=== PATIENT | female | born 1990 | race Caucasian/White ===

== ENCOUNTER 2017-01-09 16:48 | Inpatient (IN) | payer OTHER ==
[~2017-01-09] VITALS: Ht 167.6 cm; Wt 121.1 kg
[2017-01-09 17:10] LABS: BASO # 0.1 x10^3/uL (0.0-0.2); BASO % 0 % (0-3); EOS % 0 % (0-3); HEMATOCRIT 40.9 % (36.0-47.0); HEMOGLOBIN 13.6 g/dL (12.0-15.5); LYMPH # 1.9 x10^3/uL (1.0-4.8); LYMPH % 9 % (24-48); MEAN CORPUSCULAR HEMOGLOBIN 29 pg (25-35); MEAN CORPUSCULAR HGB CONC 33 g/dL (31-37); MEAN CORPUSCULAR VOLUME 88 fL (79-100); MONO % 3 % (0-9); NEUT % 87 % (31-73); PLATELET COUNT 366 x10^3/uL (140-400); RED BLOOD COUNT 4.65 x10^6/uL (3.50-5.40); RED CELL DISTRIBUTION WIDTH 13.3 % (11.5-14.5)
[2017-01-09 17:17] LABS: CALCIUM 9.5 mg/dL (8.5-10.1); CREATININE 0.9 mg/dL (0.6-1.0); GFR 74.6; POTASSIUM 3.8 mmol/L (3.5-5.1)
--- NOTE | 2017-01-09 17:17 | PHYS DOC ---
Past Medical History Past Medical History: Depression Past Surgical History: Cholecystectomy Adult General Chief Complaint Chief Complaint: ABDOMINAL PAIN HPI HPI Patient is a 26 year old female who presents with abdominal pain. Patient reports pain started as a sharp, generalized/periumbilical pain ~1330 this afternoon. The pain has now localized to her RLQ. Pain worse with certain movements. It is accompanied by N/V. No clear inciting or mitigating factors. No prior similar episodes. She has not taken anything for symptoms. She denies urinary symptoms, vaginal bleeding or discharge. Review of Systems Review of Systems Constitutional: Denies fever or chills Eyes: Denies change in visual acuity or eye pain HENT: Denies nasal congestion or sore throat Respiratory: Denies cough or shortness of breath Cardiovascular: Denies chest pain GI: Abdominal pain, nausea, vomiting. Denies bloody stools or diarrhea : Denies dysuria, hematuria, vaginal bleeding or discharge Musculoskeletal: Denies back pain or joint pain Integument: Denies rash or skin lesions Neurologic: Denies headache, focal weakness or sensory changes Current Medications Current Medications Current Medications Medications (Trade) Dose Ordered Sig/Elvis Start Time Stop Time Status Last Admin Dose Admin Acetaminophen (Tylenol) 650 mg PRN Q4HRS PRN 01/09/17 18:30 01/10/17 18:29 Ertapenem (Invanz 1gm Ivpb For Omni) 50 ml @ 100 mls/hr 1X ONCE 01/09/17 18:15 01/09/17 18:44 DC 01/09/17 18:21 100 MLS/HR Iohexol 75 ml 75 ml 1X ONCE 01/09/17 17:30 01/09/17 17:31 DC 01/09/17 17:32 75 ML Morphine Sulfate 4 mg 4 mg PRN Q2HR PRN 01/09/17 18:30 01/10/17 18:29 Ondansetron HCl (Zofran) 4 mg PRN Q8HRS PRN 01/09/17 18:30 01/10/17 18:29 Sodium Chloride (Iv Sodium Chloride 0.9% 1000ml Bag) 1,000 ml @ 125 mls/hr Q8H 01/09/17 19:00 01/10/17 18:59 Allergies Allergies Allergies Coded Allergies Type Severity Reaction Last Updated Verified No Known Drug Allergies 2/23/17 No Physical Exam Physical Exam Constitutional: Well developed, well nourished, no acute distress, non-toxic appearance HENT: Normocephalic, atraumatic, bilateral external ears normal Eyes: EOMI, conjunctiva normal, no discharge Neck: Normal range of motion, no stridor Cardiovascular: Tachycardic, regular rhythm, no murmur Lungs & Thorax: Bilateral breath sounds clear to auscultation Abdomen: Bowel sounds normal, soft, non-distended, RLQ TTP without guarding or rebound Skin: Warm, dry, no erythema, no rash Extremities: No obvious deformity, no edema Neurologic: Alert and oriented X 3, no gross deficits noted Psychologic: Affect normal, judgement normal, mood normal Current Patient Data Vital Signs Vital Signs Date Time Temp Pulse Resp B/P Pulse Ox O2 Delivery O2 Flow Rate FiO2 01/09/17 17:52 91 15 118/58 98 Room Air 01/09/17 16:55 98.5 98.5 Lab Values Laboratory Tests Test 01/09/17 17:00 01/09/17 17:05 01/09/17 17:17 White Blood Count 21.0x10^3/uL (4.0-11.0) H Red Blood Count 4.65x10^6/uL (3.50-5.40) Hemoglobin 13.6g/dL (12.0-15.5) Hematocrit 40.9% (36.0-47.0) Mean Corpuscular Volume 88fL (79-100) Mean Corpuscular Hemoglobin 29pg (25-35) Mean Corpuscular Hemoglobin Concent 33g/dL (31-37) Red Cell Distribution Width 13.3% (11.5-14.5) Platelet Count 366x10^3/uL (140-400) Neutrophils (%) (Auto) 87% (31-73) H Lymphocytes (%) (Auto) 9% (24-48) L Monocytes (%) (Auto) 3% (0-9) Eosinophils (%) (Auto) 0% (0-3) Basophils (%) (Auto) 0% (0-3) Neutrophils # (Auto) 18.3x10^3uL (1.8-7.7) H Lymphocytes # (Auto) 1.9x10^3/uL (1.0-4.8) Monocytes # (Auto) 0.6x10^3/uL (0.0-1.1) Eosinophils # (Auto) 0.1x10^3/uL (0.0-0.7) Basophils # (Auto) 0.1x10^3/uL (0.0-0.2) Segmented Neutrophils % 89% (35-66) H Lymphocytes % 7% (24-48) L Monocytes % 3% (0-10) Eosinophils % 1% (0-5) Platelet Estimate Adequate (ADEQUATE) Anisocytosis Slight Sodium Level 143mmol/L (136-145) Potassium Level 3.8mmol/L (3.5-5.1) Chloride Level 106mmol/L (98-107) Carbon Dioxide Level 26mmol/L (21-32) Anion Gap 11 (6-14) Blood Urea Nitrogen 9mg/dL (7-20) Creatinine 0.9mg/dL (0.6-1.0) Estimated GFR (Cockcroft-Gault) 74.6 BUN/Creatinine Ratio 10 (6-20) Glucose Level 112mg/dL (70-99) H Calcium Level 9.5mg/dL (8.5-10.1) Total Bilirubin 0.6mg/dL (0.2-1.0) Aspartate Amino Transferase (AST) 23U/L (15-37) Alanine Aminotransferase (ALT) 25U/L (14-59) Alkaline Phosphatase 86U/L (46-116) Total Protein 8.1g/dL (6.4-8.2) Albumin 3.9g/dL (3.4-5.0) Albumin/Globulin Ratio 0.9 (1.0-1.7) L Lipase 100U/L (73-393) Urine Collection Type Unknown Urine Color Margaret Urine Clarity Cloudy Urine pH 5.5 Urine Specific [place] >=1.030 Urine Protein 30mg/dL (NEG-TRACE) Urine Glucose (UA) Negativemg/dL (NEG) Urine Ketones (Stick) Tracemg/dL (NEG) Urine Blood Negative (NEG) Urine Nitrite Negative (NEG) Urine Bilirubin Small (NEG) Urine Urobilinogen Dipstick 0.2mg/dL (0.2 mg/dL) Urine Leukocyte Esterase Small (NEG) Urine RBC 0/HPF (0-2) Urine WBC 5-10/HPF (0-4) Urine Squamous Epithelial Cells Many/LPF Urine Calcium Phosphate Crystals /HPF Urine Bacteria Moderate/HPF (0-FEW) Urine Mucus Marked/LPF POC Urine HCG, Qualitative Hcg negative (Negative) Laboratory Tests 01/09/17 17:00 Laboratory Tests 01/09/17 17:00 EKG EKG [] Radiology/Procedures Radiology/Procedures CT A/P: IMPRESSION The appendix appears mildly abnormal. This is consistent with early acute appendicitis. Course & Med Decision Making Course & Med Decision Making Pertinent Labs and Imaging studies reviewed. (See chart for details) Patient is 26 year old female who presents with RLQ pain. Story suspicious for appendicitis. Will check labs, UA, urine preg, CT A/P to evaluate. IVF bolus, pain meds, nausea meds ordered for relief of symptoms. Labs notable for leukocytosis. Imaging results as above. Dose of invanz ordered. Discussed results with patient. Discussed with Dr. Lindsay, who will consult on patient. Discussed with Dr. Serrano, will admit under his care for further evaluation and treatment. Dragon Disclaimer Dragon Disclaimer This electronic medical record was generated, in whole or in part, using a voice recognition dictation system. Departure Departure Impression: Primary Impression: Acute appendicitis Disposition: ADMITTED INPATIENT Admitting Physician: Mitch Serrano Condition: STABLE SINGH OSBORN MD Jan 09, 2017 17:17
[2017-01-09 17:24] LABS: ALBUMIN 3.9 g/dL (3.4-5.0); ALBUMIN/GLOBULIN RATIO 0.9 (1.0-1.7); TOTAL BILIRUBIN 0.6 mg/dL (0.2-1.0); TOTAL PROTEIN 8.1 g/dL (6.4-8.2)
[2017-01-09] MEDS ORDERED: MORPHINE SULFATE 4 MG/ML DISP.SYRIN. IV ONE (17:30)
[2017-01-09] MEDS ORDERED: IV NORMAL SALINE 1000ML BAG 1,000 ML IV SCH ×2 (17:30→19:00)
[2017-01-09] MEDS ORDERED: IOHEXOL 300 MG/ML 75 ML VIAL IV ONE (17:30)
[2017-01-09] MEDS ORDERED: ONDANSETRON PF 4 MG/2 ML VIAL. IV ONE (17:30)
[2017-01-09 17:38] LABS: % EOS 1 % (0-5); ANISOCYTOSIS SLIGHT; PLT ESTIMATE ADEQUATE (ADEQUATE)
[2017-01-09 17:53] LABS: BILIRUBIN,URINE SMALL (NEG); GLUCOSE,URINE NEGATIVE (NEG); NITRITE,URINE NEGATIVE (NEG); PH,URINE 5.5; PROTEIN,URINE 30 mg/dL (NEG-TRACE); UROBILINOGEN,URINE 0.2 mg/dL (0.2 mg/dL)
[2017-01-09 17:59] LABS: BACTERIA,URINE MODERATE /HPF (0-FEW); RBC,URINE 0 /HPF (0-2); SQUAMOUS EPITHELIAL CELL,UR MANY /LPF
--- NOTE | 2017-01-09 18:07 | RAD ---
PROCEDURE CT abdomen pelvis with contrast HISTORY Sharp periumbilical pain TECHNIQUE After IV infusion of95 cc of Optiray-320, helical CT scanning of the abdomen and pelvis was performed.GI contrast was not administered. FINDINGS The appendix is only mildly dilated to 10 millimeters however there is minimal surrounding inflammation. The liveer is homogeous in appearance and normal in size. The spleen is unremarkable and normal in size. The pancreas is homogeneous in appearance and no focal enlargement is seen. The gallbladder has been removed. No focal aneurysmal dilatation of the abdominal aorta is seen. No enlarged abdominal or pelvic lymphadenopathy is seen. No soft tissue mass is seen. No obstructive bowel pattern or bowel wall thickening or inflammatory change is seen. No free intraperitoneal fluid or abscess or free intraperitoneal air is seen. The lung bases are clear. Both kidneys are functioning and no hydronephrosis or renal mass or perinephric fluid collection is seen. The urinary bladder is collapsed and not well evaluated. No adrenal masses are seen. No osteolytic process is seen. IMPRESSION The appendix appears mildly abnormal. This is consistent with early acute appendicitis. Electronically signed by: Sherif Greenberg MD (Jan 09, 2017 18:05:38)
[2017-01-09] MEDS ORDERED: ERTAPENEM 1GM IVPB FOR OMNI 50 ML IV ONE (18:15)
[2017-01-09] MEDS ORDERED: MORPHINE SULFATE 4 MG/ML DISP.SYRIN. IV PRN (18:30)
[2017-01-09] MEDS ORDERED: ONDANSETRON PF 4 MG/2 ML VIAL. IV PRN ×3 (18:30→21:15)
[2017-01-09] MEDS ORDERED: ACETAMINOPHEN 325 MG TABLET. PO PRN (18:30)
[2017-01-09] MEDS ORDERED: DESFLURANE 61 TO 120 MINUTES IH ONE (19:16)
[2017-01-09] MEDS ORDERED: MIDAZOLAM HCL 2 MG/2 ML VIAL. ONE (19:19)
[2017-01-09] MEDS ORDERED: FENTANYL PF 100 MCG/2 ML VIAL. ONE (19:19)
[2017-01-09] MEDS ORDERED: NEOSTIGMINE METHYLSULFATE 5 MG/5 ML SYRINGE. ONE (19:20)
[2017-01-09] MEDS ORDERED: LIDOCAINE 2% 100 MG/5 ML DISP.SYRIN. ONE (19:20)
[2017-01-09] MEDS ORDERED: DEXAMETHASONE SOD PHOS 20 MG/5 ML VIAL. ONE (19:20)
[2017-01-09] MEDS ORDERED: ROCURONIUM 50 MG/5 ML VIAL. ONE (19:20)
[2017-01-09] MEDS ORDERED: KETOROLAC 30 MG/ML SYRINGE FOR OR. INJ ONE (19:20)
[2017-01-09] MEDS ORDERED: ONDANSETRON PF 4 MG/2 ML VIAL. ONE (19:20)
[2017-01-09] MEDS ORDERED: PROPOFOL 20 ML IV ONE (19:20)
[2017-01-09] MEDS ORDERED: SUCCINYLCHOLINE 200 MG/10 ML VIAL. ONE (19:20)
[2017-01-09] MEDS ORDERED: GLYCOPYRROLATE 1 MG/5 ML VIAL. ONE (19:20)
[2017-01-09] MEDS ORDERED: BUPIVACAINE-EPI 0.25%-1:200000 50 ML VIAL. ONE (19:37)
--- NOTE | 2017-01-09 20:27 | PDOC2 ---
CONSULT Date of Consult Date of Consult DATE: 01/09/17 TIME: 20:23 Reason for Consult Reason for Consult: Abdominal pain Referring Physician Referring Physician: Zach Identification/Chief Complaint Chief Complaint Abdominal pain Source Source: Patient History of Present Illness Reason for Visit: 26 yo female who developed kiera umbilical abdominal pain today about 8 hours ago then pain moved to [facility] with Nausea and vomiting. Denies fever or chills. Past Medical History Infectious disease: Herpes simplex2 Past Surgical History Past Surgical History: Cholecystectomy Family History Family History: No Significant Social History No ALCOHOL: none Drugs: None Lives: with Family Current Problem List Problem List Problems Medical Problems: (1) Acute appendicitis Status: Acute Current Medications Current Medications Current Medications Sodium Chloride (Iv Sodium Chloride 0.9% 1000ml Bag) 1,000 ml @ 1,000 mls/hr Q1H IV Last administered on 01/09/17 17:14; Start 01/09/17 at 17:30; Stop at 18:29; Status DC Ondansetron HCl (Zofran) 4 mg 1X ONCE IV Last administered on 01/09/17 17:15 ; Start 01/09/17 at 17:30; Stop 01/09/17 at 17:31; Status DC Morphine Sulfate 4 mg 1X ONCE IV Last administered on 01/09/17 17:16; Start 01/09/17 at 17:30; Stop 01/09/17 at 17:31; Status DC Iohexol 75 ml 75 ml 1X ONCE IV Last administered on 01/09/17 17:32; Start at 17:30; Stop 01/09/17 at 17:31; Status DC Ertapenem (Invanz 1gm Ivpb For Omni) 50 ml @ 100 mls/hr 1X ONCE IV Last administered on 01/09/17 18:21; Start 01/09/17 at 18:15; Stop 01/09/17 at 18:44 ; Status DC Ondansetron HCl (Zofran) 4 mg PRN Q8HRS PRN IV NAUSEA/VOMITING Last administered on 01/09/17 19:31; Start 01/09/17 at 18:30; Stop 01/10/17 at 18:29 Morphine Sulfate 4 mg 4 mg PRN Q2HR PRN IV PAIN; Start 01/09/17 at 18:30; Stop 01/10/17 at 18:29 Sodium Chloride (Iv Sodium Chloride 0.9% 1000ml Bag) 1,000 ml @ 125 mls/hr Q8H IV Last administered on 01/09/17t 19:31; Start 01/09/17 at 19:00; Stop at 18:59 Acetaminophen (Tylenol) 650 mg PRN Q4HRS PRN PO FEVER; Start 01/09/17 at 18:30 ; Stop 01/10/17 at 18:29 Desflurane (Suprane) 60 ml STK-MED ONCE IH ; Start 01/09/17 at 19:16; Stop 01/09 at 19:17; Status DC Midazolam HCl (Versed) 2 mg STK-MED ONCE .ROUTE ; Start 01/09/17 at 19:19; Stop 01/09/17 at 19:20; Status DC Fentanyl Citrate (Fentanyl 2ml Vial) 100 mcg STK-MED ONCE .ROUTE ; Start at 19:19; Stop 01/09/17 at 19:20; Status DC Succinylcholine Chloride (Anectine) 200 mg STK-MED ONCE .ROUTE ; Start 01/09/17 at 19:20; Stop 01/09/17 at 19:21; Status DC Glycopyrrolate (Robinul) 1 mg STK-MED ONCE .ROUTE ; Start 01/09/17 at 19:20; Stop 01/09/17 at 19:21; Status DC Neostigmine Methylsulfate 5 mg STK-MED ONCE .ROUTE ; Start 01/09/17 at 19:20; Stop 01/09/17 at 19:21; Status DC Rocuronium Arco 50 mg 50 mg STK-MED ONCE .ROUTE ; Start 01/09/17 at 19:20; Stop 01/09/17 at 19:21; Status DC Propofol (Diprivan) 20 ml @ As Directed STK-MED ONCE IV ; Start 01/09/17 at 19: 20; Stop 01/09/17 at 19:21; Status DC Dexamethasone Sodium Phosphate (Decadron) 20 mg STK-MED ONCE .ROUTE ; Start at 19:20; Stop 01/09/17 at 19:21; Status DC Ondansetron HCl (Zofran) 4 mg STK-MED ONCE .ROUTE ; Start 01/09/17 at 19:20; Stop 01/09/17 at 19:21; Status DC Ketorolac Tromethamine (Toradol For Or Only) 30 mg STK-MED ONCE INJ ; Start at 19:20; Stop 01/09/17 at 19:21; Status DC Lidocaine HCl 100 mg STK-MED ONCE .ROUTE ; Start 01/09/17 at 19:20; Stop at 19:21; Status DC Bupivacaine HCl/ Epinephrine Bitart (Marcaine-Epi 0.25%-1:[id number]) 50 ml STK-MED ONCE .ROUTE ; Start 01/09/17 at 19:37; Stop 01/09/17 at 19:38; Status DC Allergies Allergies: Coded Allergies: No Known Drug Allergies (Unverified , 01/09/17) ROS Gastrointestinal: Yes Abdominal Pain, Yes Nausea, Yes Vomiting Physical Exam General: Alert, Oriented X3, Cooperative, mild distress HEENT: Atraumatic, PERRLA, EOMI Lungs: Clear to auscultation, Normal air movement Heart: Regular rate, No murmurs Abdomen: Normal bowel sounds, Soft, Other (TTP RLQ) Extremities: No edema Skin: No significant lesion Neuro: Normal speech Psych/Mental Status: Mental status NL Vitals VITALS Vital Signs Date Time Temp Pulse Resp B/P Pulse Ox O2 Delivery O2 Flow Rate FiO2 01/09/17 19:30 113 21 173/79 95 Room Air 01/09/17 16:55 98.5 98.5 Labs Labs Laboratory Tests Test 01/09/17 17:00 01/09/17 17:05 01/09/17 17:17 White Blood Count 21.0x10^3/uL (4.0-11.0) Red Blood Count 4.65x10^6/uL (3.50-5.40) Hemoglobin 13.6g/dL (12.0-15.5) Hematocrit 40.9% (36.0-47.0) Mean Corpuscular Volume 88fL (79-100) Mean Corpuscular Hemoglobin 29pg (25-35) Mean Corpuscular Hemoglobin Concent 33g/dL (31-37) Red Cell Distribution Width 13.3% (11.5-14.5) Platelet Count 366x10^3/uL (140-400) Neutrophils (%) (Auto) 87% (31-73) Lymphocytes (%) (Auto) 9% (24-48) Monocytes (%) (Auto) 3% (0-9) Eosinophils (%) (Auto) 0% (0-3) Basophils (%) (Auto) 0% (0-3) Neutrophils # (Auto) 18.3x10^3uL (1.8-7.7) Lymphocytes # (Auto) 1.9x10^3/uL (1.0-4.8) Monocytes # (Auto) 0.6x10^3/uL (0.0-1.1) Eosinophils # (Auto) 0.1x10^3/uL (0.0-0.7) Basophils # (Auto) 0.1x10^3/uL (0.0-0.2) Segmented Neutrophils % 89% (35-66) Lymphocytes % 7% (24-48) Monocytes % 3% (0-10) Eosinophils % 1% (0-5) Platelet Estimate Adequate (ADEQUATE) Anisocytosis Slight Sodium Level 143mmol/L (136-145) Potassium Level 3.8mmol/L (3.5-5.1) Chloride Level 106mmol/L (98-107) Carbon Dioxide Level 26mmol/L (21-32) Anion Gap 11 (6-14) Blood Urea Nitrogen 9mg/dL (7-20) Creatinine 0.9mg/dL (0.6-1.0) Estimated GFR (Cockcroft-Gault) 74.6 BUN/Creatinine Ratio 10 (6-20) Glucose Level 112mg/dL (70-99) Calcium Level 9.5mg/dL (8.5-10.1) Total Bilirubin 0.6mg/dL (0.2-1.0) Aspartate Amino Transf (AST/SGOT) 23U/L (15-37) Alanine Aminotransferase (ALT/SGPT) 25U/L (14-59) Alkaline Phosphatase 86U/L (46-116) Total Protein 8.1g/dL (6.4-8.2) Albumin 3.9g/dL (3.4-5.0) Albumin/Globulin Ratio 0.9 (1.0-1.7) Lipase 100U/L (73-393) Urine Collection Type Unknown Urine Color Margaret Urine Clarity Cloudy Urine pH 5.5 Urine Specific [place] >=1.030 Urine Protein 30mg/dL (NEG-TRACE) Urine Glucose (UA) Negativemg/dL (NEG) Urine Ketones (Stick) Tracemg/dL (NEG) Urine Blood Negative (NEG) Urine Nitrite Negative (NEG) Urine Bilirubin Small (NEG) Urine Urobilinogen Dipstick 0.2mg/dL (0.2 mg/dL) Urine Leukocyte Esterase Small (NEG) Urine RBC 0/HPF (0-2) Urine WBC 5-10/HPF (0-4) Urine Squamous Epithelial Cells Many/LPF Urine Calcium Phosphate Crystals /HPF Urine Bacteria Moderate/HPF (0-FEW) Urine Mucus Marked/LPF Bedside Urine HCG, Qualitative Hcg negative (Negative) Laboratory Tests Test 01/09/17 17:00 01/09/17 17:05 01/09/17 17:17 White Blood Count 21.0x10^3/uL (4.0-11.0) Red Blood Count 4.65x10^6/uL (3.50-5.40) Hemoglobin 13.6g/dL (12.0-15.5) Hematocrit 40.9% (36.0-47.0) Mean Corpuscular Volume 88fL (79-100) Mean Corpuscular Hemoglobin 29pg (25-35) Mean Corpuscular Hemoglobin Concent 33g/dL (31-37) Red Cell Distribution Width 13.3% (11.5-14.5) Platelet Count 366x10^3/uL (140-400) Neutrophils (%) (Auto) 87% (31-73) Lymphocytes (%) (Auto) 9% (24-48) Monocytes (%) (Auto) 3% (0-9) Eosinophils (%) (Auto) 0% (0-3) Basophils (%) (Auto) 0% (0-3) Neutrophils # (Auto) 18.3x10^3uL (1.8-7.7) Lymphocytes # (Auto) 1.9x10^3/uL (1.0-4.8) Monocytes # (Auto) 0.6x10^3/uL (0.0-1.1) Eosinophils # (Auto) 0.1x10^3/uL (0.0-0.7) Basophils # (Auto) 0.1x10^3/uL (0.0-0.2) Segmented Neutrophils % 89% (35-66) Lymphocytes % 7% (24-48) Monocytes % 3% (0-10) Eosinophils % 1% (0-5) Platelet Estimate Adequate (ADEQUATE) Anisocytosis Slight Sodium Level 143mmol/L (136-145) Potassium Level 3.8mmol/L (3.5-5.1) Chloride Level 106mmol/L (98-107) Carbon Dioxide Level 26mmol/L (21-32) Anion Gap 11 (6-14) Blood Urea Nitrogen 9mg/dL (7-20) Creatinine 0.9mg/dL (0.6-1.0) Estimated GFR (Cockcroft-Gault) 74.6 BUN/Creatinine Ratio 10 (6-20) Glucose Level 112mg/dL (70-99) Calcium Level 9.5mg/dL (8.5-10.1) Total Bilirubin 0.6mg/dL (0.2-1.0) Aspartate Amino Transf (AST/SGOT) 23U/L (15-37) Alanine Aminotransferase (ALT/SGPT) 25U/L (14-59) Alkaline Phosphatase 86U/L (46-116) Total Protein 8.1g/dL (6.4-8.2) Albumin 3.9g/dL (3.4-5.0) Albumin/Globulin Ratio 0.9 (1.0-1.7) Lipase 100U/L (73-393) Urine Collection Type Unknown Urine Color Margaret Urine Clarity Cloudy Urine pH 5.5 Urine Specific [place] >=1.030 Urine Protein 30mg/dL (NEG-TRACE) Urine Glucose (UA) Negativemg/dL (NEG) Urine Ketones (Stick) Tracemg/dL (NEG) Urine Blood Negative (NEG) Urine Nitrite Negative (NEG) Urine Bilirubin Small (NEG) Urine Urobilinogen Dipstick 0.2mg/dL (0.2 mg/dL) Urine Leukocyte Esterase Small (NEG) Urine RBC 0/HPF (0-2) Urine WBC 5-10/HPF (0-4) Urine Squamous Epithelial Cells Many/LPF Urine Calcium Phosphate Crystals /HPF Urine Bacteria Moderate/HPF (0-FEW) Urine Mucus Marked/LPF Bedside Urine HCG, Qualitative Hcg negative (Negative) Images Images CT of the abd showing enlarged appendix early appendicitis no abscess Assessment/Plan Assessment/Plan Acute appendicitis Plan L/S Appendectomy SHYANNE BATES MD Jan 09, 2017 20:26
[2017-01-09] MEDS ORDERED: FAMOTIDINE 20 MG/2 ML VIAL ONE (20:29)
[2017-01-09] MEDS ORDERED: [UNRECOGNIZED DRUG - OTHER] IV ONE (21:00)
[2017-01-09] MEDS ORDERED: IV RINGERS,LACTATED 1000ML 1,000 ML IV SCH (21:01)
--- NOTE | 2017-01-09 21:12 | PDOC ---
BRIEF OPERATIVE NOTE Date: Jan 09, 2017 Pre-Op Diagnosis Acute appendicitis Post-Op Diagnosis Same Procedure Performed L/S Appendectomy Surgeon Neftali Anesthesia Type: General Blood Loss 10ml Specimens Obtained Appendix Findings as above Complications None SHYANNE BATES MD Jan 09, 2017 21:12
[2017-01-09] MEDS ORDERED: 0.9 % SODIUM CHLORIDE 10 ML DISP.SYRIN. IV PRN (21:15)
[2017-01-09] MEDS ORDERED: MORPHINE SULFATE 2 MG/ML DISP.SYRIN. IV PRN ×2 (21:15)
[2017-01-09] MEDS ORDERED: HYDROMORPHONE 2 MG/ML VIAL. IV PRN (21:15)
[2017-01-09] MEDS ORDERED: PROCHLORPERAZINE 10 MG/2 ML VIAL. IV PRN (21:15)
[2017-01-09] MEDS ORDERED: LIDOCAINE 1% 1 ML SYRINGE. ID PRN (21:15)
[2017-01-09] MEDS ORDERED: OXYCODONE/APAP 5/325 TABLET. PO PRN ×2 (21:15)
[2017-01-09] MEDS ORDERED: FENTANYL PF 100 MCG/2 ML VIAL. IV PRN ×2 (21:15)
[2017-01-09 22:05] VITALS: BP 119/62
[2017-01-09 23:00] VITALS: BP 122/75
--- NOTE | 2017-01-09 23:49 | OP ---
DATE OF SURGERY: 01/09/2017 PREOPERATIVE DIAGNOSIS: Acute appendicitis. POSTOPERATIVE DIAGNOSIS: Acute appendicitis. PROCEDURE: Laparoscopic appendectomy. SURGEON: Ermias Bates M.D. INDICATIONS: The patient is a 26-year-old female who has had about a 10-hour history of right lower quadrant abdominal pain, elevated white count and a CT scan showing signs consistent with acute appendicitis. No abscess. Procedure of laparoscopic appendectomy was explained to the patient in detail. Risks, benefits were also discussed including bleeding, infection, injury to intra-abdominal contents, possibly sustaining further open operations. Alternatives of this procedure were also discussed with the patient who seemed to understand and gave verbal and written consent to have the procedure performed. DESCRIPTION OF PROCEDURE: The patient was taken to the operating room and placed in the supine position, general anesthesia was initiated. Once the patient was asleep and intubated, her abdomen was prepped and draped in usual sterile fashion using ChloraPrep. An area just below the umbilicus was injected 0.25% Marcaine with epinephrine. Incision was made with an 11 blade scalpel and a Veress needle was placed within the abdomen. Pneumoperitoneum was achieved. Once this was complete, an 11 mm port was placed and a 5 mm camera was placed within the abdomen. Abdomen was inspected. No other abnormalities were noted. At this point, two 5 mm ports were then placed, one low in the midline pelvis and one in the right upper quadrant. At this point, camera was moved to the pelvic port in the right lower quadrant. The cecum was visualized and the appendix was mildly retrocecal. The tip of the appendix was quite inflamed and stuck to the lateral wall. This was easily dissected from the lateral blunt dissection. A window was propagated at the mesoappendix at the base of the appendix. An Endo-UMM stapler was then used to staple and transect the base of the appendix. A second load was used to staple and transect the mesoappendix. Appendix was placed in EndoCatch bag and removed from the umbilicus. The right lower quadrant was irrigated and suctioned dry. Hemostasis seemed to be appropriate and the pneumoperitoneum was reduced. All ports were removed. The fascial defect at the umbilicus was closed with [id number] Vicryl suture and the skin was reapproximated at all port sites with 4-0 subcuticular Monocryl. Danette Steri-Strips and Band-Aids were applied as dressings. The patient was awakened, extubated in the operating room, taken to recovery in stable condition. All sponge, instrument counts listed as correct. Estimated blood loss 10 mL. ERMIAS BATES MD DR: HEATHER/pierre JOB#: [id number] / [id number]
--- NOTE | 2017-01-10 00:01 | HP ---
ADMIT DATE: 01/09/2017 CHIEF COMPLAINT: Abdominal pain. HISTORY OF PRESENT ILLNESS: The patient is a pleasant, healthy 26-year-old female who presents to the ER with abdominal pain. She states it is rated at 10/10 and she has got associated nausea. It is right in the lower quadrant. I discussed the case with the ER physician. He did a CAT scan, which is showing appendicitis. He called Dr. Lindsay. Dr. Lindsay is going to take her to surgery ____ be the primary admission ____. PAST MEDICAL HISTORY: Depression, cholecystectomy. ALLERGIES: None. FAMILY HISTORY: Hypertension. SOCIAL HISTORY: She does not drink, smoke or take drugs. MEDICATIONS: Reviewed, please refer to the MRAD. REVIEW OF SYSTEMS: GENERAL: No history of weight change, weakness or fevers. SKIN: No bruising, hair changes or rashes. EYES: No blurred, double or loss of vision. NOSE AND THROAT: No history of nosebleeds, hoarseness or sore throat. HEART: No history of palpitations, chest pain or shortness of breath on exertion. LUNGS: Denies cough, hemoptysis, wheezing or shortness of breath. GASTROINTESTINAL: Complains of abdominal pain, nausea and vomiting. GENITOURINARY: No history of frequency, urgency, hesitancy or nocturia. NEUROLOGIC: Denies history of numbness, tingling, tremor or weakness. PSYCHIATRIC: No history of panic, anxiety or depression. ENDOCRINE: No history of heat or cold intolerance, polyuria or polydipsia. EXTREMITIES: Denies muscle weakness, joint pain, pain on walking or stiffness. PHYSICAL EXAMINATION: VITAL SIGNS: Temperature 98.5, pulse 100, respirations 16, blood pressure 143/73, O2 sat 97%. GENERAL: She is alert, weak, complaining of abdominal pain. Her mom is present. She is good support for her. HEART: Normal S1, S2. LUNGS: Clear. ABDOMEN: Soft. Decreased bowel sounds, tender in the right lower quadrant and McBurney's point. ENDOCRINE: No thyromegaly. LYMPHATICS: No cervical nodes. HEMATOPOIETIC: No bruising. LABORATORY DATA: White count 21, hemoglobin 13.6, platelets 366. Electrolytes normal. Urinalysis: Small amount of leukocyte esterase, 5-[address] of the abdomen shows appendicitis. ASSESSMENT AND PLAN: Appendicitis with incidental finding of a urinary tract infection. The patient has been admitted. We will start IV antibiotics. Consult General Surgery. P.r.n. narcotics, IV hydration, p.r.n. antiemetics. TAMMY RODRÍGUEZ DO DR: BLAINE/pierre JOB#: [id number] / [id number]
[2017-01-10] MEDS: KETOROLAC 15 MG/ML VIAL. IV SCH ×3 (00:18→12:08)
--- NOTE | 2017-01-10 00:26 | ACF ---
Admission Forms Criteria ABDOMINAL PAIN Clinical Indications for Admission to Inpatient Care (Place 'X' for any and all applicable criteria): Admission is indicated for ANY ONE of the following(1)(2)(3)(4)(5): [X]I. Inpatient admission required rather than observation care (Also use Abdominal Pain: Observation Care, as appropriate) because of ANY ONE of the following: [X]a) Severe pain requiring acute inpatient management [ ]b) Identification of etiology/finding that requires inpatient care (eg, aortic dissection, free air) [ ]c) Absent bowel sounds with complete ileus(6) [ ]d) Suspected toxic megacolon [ ]e) Severe electrolyte abnormalities requiring inpatient care [ ]f) High fever or infection requiring inpatient admission as indicated by ANY ONE of following(7)(8): [ ] i) Appropriate outpatient or observational care antimicrobial treatment unavailable, not effective, or not feasible [ ] ii) Documented bacteremia [ ] iii) Temperature > 104.9 degrees F (oral) [ ] iv) T >103.1 F (oral) or < 96.8 F(rectal) that does not respond to all emergency treatment measures [ ]g) Signs of intestinal obstruction [B] [ ]h) Hemodynamic instability [ ]i) IV fluid to replace significant ongoing losses (greater than 3 L/m2 per day) (12)(13) [ ]j) Percutaneous or open drainage (eg, abscess, biliary tract ) procedures [ ]k) Parenteral nutrition regimen that must be implemented on inpatient basis [ ]l) Other condition,treatment or monitoring requiring inpatient admission. [ ]II. Peritoneal signs present [X]III. Surgery needed that cannot be performed on an ambulatory basis. [ ]IV. Evaluation requires patient to not eat or drink for extended period ( eg, more than 24 hours). [ ]V. Contraindications and/or Inappropriate clinical situations for Observational Care in patients with abdominal pain, when ANY ONE of the following is required: [ ]a) Thorough evaluation is required to prevent catastrophic events due to delays in diagnosing (e.g.Mesenteric ischemia) 1,3 [ ]b) Patient with severe pathology or with chronic symptoms unlikely to improve in the ED stay (3) [ ]. General contraindications and/or Inappropriate clinical situations for Observational Care in patients with abdominal pain, when ANY ONE of the following is required: [ ]a) Prediction of prolongation of LOS based on ANY ONE of the following may be considered as a contraindication for observational care 2, 3, 4, 5, 6, 7, 8, 9, 10, 11 [ ]i) Age > 65 yrs. [ ]ii) Patient arriving by ambulance [ ]iii) Patient with high acuity [ ]iv) Patient requiring vital sign monitoring [ ]v) Patient on IV medication [ ]b) Systolic blood pressures 180mmHg 3,12 [ ]c) Patient with altered mental status including delirium and other alteration of consciousness, (3) [ ]d) Patient whose discharge disposition will be to a senior care home or rehabilitation home should not be managed in Emergency Department Observation Unit. CMS rule requires 3 days hospital stay before such placement.3,13 [ ]e) Patient with failure to thrive due to broad array of etiologies 3,16,17 [ ]f) Inability to ambulate 3,14 Extended stay beyond goal length of stay may be needed for(2)(3): [ ]a) Persistent abdominal pain with suspected intra-abdominal process [ ]b) Diagnosed condition requiring continued stay (e.g., pancreatitis, complicated diverticulitis) [ ]c) Surgery (e.g., colectomy) The original [facility] content created by [employer] has been revised. The portions of the content which have been revised are identified through the use of italic text or in bold, and [facility] has neither reviewed nor approved the modified material.All other unmodified content is copyright [facility]. Please see references footnoted in the original [facility] edition 2016 Admission Criteria Met?: Yes MAO MARTINEZ Jan 10, 2017 00:26
[2017-01-10 03:00] VITALS: BP 144/89
[2017-01-10] MEDS ORDERED: IV DEXTROSE 5%-LACT RINGERS 1,000 ML IV SCH (04:00)
[2017-01-10 04:30] LABS: BASO % 0 % (0-3); EOS % 0 % (0-3); HEMATOCRIT 37.8 % (36.0-47.0); HEMOGLOBIN 12.6 g/dL (12.0-15.5); LYMPH # 0.9 x10^3/uL (1.0-4.8); LYMPH % 9 % (24-48); MEAN CORPUSCULAR HEMOGLOBIN 29 pg (25-35); MEAN CORPUSCULAR HGB CONC 33 g/dL (31-37); MEAN CORPUSCULAR VOLUME 87 fL (79-100); MONO % 1 % (0-9); NEUT % 89 % (31-73); PLATELET COUNT 345 x10^3/uL (140-400); RED BLOOD COUNT 4.33 x10^6/uL (3.50-5.40); WHITE BLOOD COUNT 9.5 x10^3/uL (4.0-11.0)
[2017-01-10 04:55] LABS: CALCIUM 8.9 mg/dL (8.5-10.1); CREATININE 0.8 mg/dL (0.6-1.0); GFR 85.4; POTASSIUM 3.9 mmol/L (3.5-5.1)
[2017-01-10] MEDS ORDERED: FLUO10CA13 PO (06:38)
[2017-01-10] MEDS ORDERED: NORE1TAB27 PO (06:38)
[2017-01-10] MEDS ORDERED: VALA500T PO (06:38)
[2017-01-10 07:00] VITALS: BP 136/81
--- NOTE | 2017-01-10 09:35 | PDOC ---
SURGICAL PROGRESS NOTE Subjective tolerating diet feels well preop pain resolved urinating ambulating Vital Signs Vital Signs Date Time Temp Pulse Resp B/P Pulse Ox O2 Delivery O2 Flow Rate FiO2 01/10/17 07:00 97.8 76 20 136/81 96 Room Air 97.8 01/10/17 01:35 2.0 I&O Intake and Output 01/10/17 07:00 Intake Total 2590 ml Balance 2590 ml Intake Oral 240 ml IV Total 2350 ml General: Alert, Oriented X3, Cooperative, No acute distress Abdomen: Soft, No tenderness, Other (lap sites dry) Labs Laboratory Tests Test 01/09/17 17:00 01/09/17 17:05 01/09/17 17:17 01/10/17 03:20 White Blood Count 21.0x10^3/uL (4.0-11.0) 9.5x10^3/uL (4.0-11.0) Red Blood Count 4.65x10^6/uL (3.50-5.40) 4.33x10^6/uL (3.50-5.40) Hemoglobin 13.6g/dL (12.0-15.5) 12.6g/dL (12.0-15.5) Hematocrit 40.9% (36.0-47.0) 37.8% (36.0-47.0) Mean Corpuscular Volume 88fL (79-100) 87fL (79-100) Mean Corpuscular Hemoglobin 29pg (25-35) 29pg (25-35) Mean Corpuscular Hemoglobin Concent 33g/dL (31-37) 33g/dL (31-37) Red Cell Distribution Width 13.3% (11.5-14.5) 13.0% (11.5-14.5) Platelet Count 366x10^3/uL (140-400) 345x10^3/uL (140-400) Neutrophils (%) (Auto) 87% (31-73) 89% (31-73) Lymphocytes (%) (Auto) 9% (24-48) 9% (24-48) Monocytes (%) (Auto) 3% (0-9) 1% (0-9) Eosinophils (%) (Auto) 0% (0-3) 0% (0-3) Basophils (%) (Auto) 0% (0-3) 0% (0-3) Neutrophils # (Auto) 18.3x10^3uL (1.8-7.7) 8.5x10^3uL (1.8-7.7) Lymphocytes # (Auto) 1.9x10^3/uL (1.0-4.8) 0.9x10^3/uL (1.0-4.8) Monocytes # (Auto) 0.6x10^3/uL (0.0-1.1) 0.1x10^3/uL (0.0-1.1) Eosinophils # (Auto) 0.1x10^3/uL (0.0-0.7) 0.0x10^3/uL (0.0-0.7) Basophils # (Auto) 0.1x10^3/uL (0.0-0.2) 0.0x10^3/uL (0.0-0.2) Segmented Neutrophils % 89% (35-66) Lymphocytes % 7% (24-48) Monocytes % 3% (0-10) Eosinophils % 1% (0-5) Platelet Estimate Adequate (ADEQUATE) Anisocytosis Slight Sodium Level 143mmol/L (136-145) 140mmol/L (136-145) Potassium Level 3.8mmol/L (3.5-5.1) 3.9mmol/L (3.5-5.1) Chloride Level 106mmol/L (98-107) 105mmol/L (98-107) Carbon Dioxide Level 26mmol/L (21-32) 25mmol/L (21-32) Anion Gap 11 (6-14) 10 (6-14) Blood Urea Nitrogen 9mg/dL (7-20) 7mg/dL (7-20) Creatinine 0.9mg/dL (0.6-1.0) 0.8mg/dL (0.6-1.0) Estimated GFR (Cockcroft-Gault) 74.6 85.4 BUN/Creatinine Ratio 10 (6-20) Glucose Level 112mg/dL (70-99) 147mg/dL (70-99) Calcium Level 9.5mg/dL (8.5-10.1) 8.9mg/dL (8.5-10.1) Total Bilirubin 0.6mg/dL (0.2-1.0) Aspartate Amino Transf (AST/SGOT) 23U/L (15-37) Alanine Aminotransferase (ALT/SGPT) 25U/L (14-59) Alkaline Phosphatase 86U/L (46-116) Total Protein 8.1g/dL (6.4-8.2) Albumin 3.9g/dL (3.4-5.0) Albumin/Globulin Ratio 0.9 (1.0-1.7) Lipase 100U/L (73-393) Urine Collection Type Unknown Urine Color Margaret Urine Clarity Cloudy Urine pH 5.5 Urine Specific [place] >=1.030 Urine Protein 30mg/dL (NEG-TRACE) Urine Glucose (UA) Negativemg/dL (NEG) Urine Ketones (Stick) Tracemg/dL (NEG) Urine Blood Negative (NEG) Urine Nitrite Negative (NEG) Urine Bilirubin Small (NEG) Urine Urobilinogen Dipstick 0.2mg/dL (0.2 mg/dL) Urine Leukocyte Esterase Small (NEG) Urine RBC 0/HPF (0-2) Urine WBC 5-10/HPF (0-4) Urine Squamous Epithelial Cells Many/LPF Urine Calcium Phosphate Crystals /HPF Urine Bacteria Moderate/HPF (0-FEW) Urine Mucus Marked/LPF Bedside Urine HCG, Qualitative Hcg negative (Negative) Laboratory Tests Test 01/09/17 17:00 01/09/17 17:05 01/09/17 17:17 01/10/17 03:20 White Blood Count 21.0x10^3/uL (4.0-11.0) 9.5x10^3/uL (4.0-11.0) Red Blood Count 4.65x10^6/uL (3.50-5.40) 4.33x10^6/uL (3.50-5.40) Hemoglobin 13.6g/dL (12.0-15.5) 12.6g/dL (12.0-15.5) Hematocrit 40.9% (36.0-47.0) 37.8% (36.0-47.0) Mean Corpuscular Volume 88fL (79-100) 87fL (79-100) Mean Corpuscular Hemoglobin 29pg (25-35) 29pg (25-35) Mean Corpuscular Hemoglobin Concent 33g/dL (31-37) 33g/dL (31-37) Red Cell Distribution Width 13.3% (11.5-14.5) 13.0% (11.5-14.5) Platelet Count 366x10^3/uL (140-400) 345x10^3/uL (140-400) Neutrophils (%) (Auto) 87% (31-73) 89% (31-73) Lymphocytes (%) (Auto) 9% (24-48) 9% (24-48) Monocytes (%) (Auto) 3% (0-9) 1% (0-9) Eosinophils (%) (Auto) 0% (0-3) 0% (0-3) Basophils (%) (Auto) 0% (0-3) 0% (0-3) Neutrophils # (Auto) 18.3x10^3uL (1.8-7.7) 8.5x10^3uL (1.8-7.7) Lymphocytes # (Auto) 1.9x10^3/uL (1.0-4.8) 0.9x10^3/uL (1.0-4.8) Monocytes # (Auto) 0.6x10^3/uL (0.0-1.1) 0.1x10^3/uL (0.0-1.1) Eosinophils # (Auto) 0.1x10^3/uL (0.0-0.7) 0.0x10^3/uL (0.0-0.7) Basophils # (Auto) 0.1x10^3/uL (0.0-0.2) 0.0x10^3/uL (0.0-0.2) Segmented Neutrophils % 89% (35-66) Lymphocytes % 7% (24-48) Monocytes % 3% (0-10) Eosinophils % 1% (0-5) Platelet Estimate Adequate (ADEQUATE) Anisocytosis Slight Sodium Level 143mmol/L (136-145) 140mmol/L (136-145) Potassium Level 3.8mmol/L (3.5-5.1) 3.9mmol/L (3.5-5.1) Chloride Level 106mmol/L (98-107) 105mmol/L (98-107) Carbon Dioxide Level 26mmol/L (21-32) 25mmol/L (21-32) Anion Gap 11 (6-14) 10 (6-14) Blood Urea Nitrogen 9mg/dL (7-20) 7mg/dL (7-20) Creatinine 0.9mg/dL (0.6-1.0) 0.8mg/dL (0.6-1.0) Estimated GFR (Cockcroft-Gault) 74.6 85.4 BUN/Creatinine Ratio 10 (6-20) Glucose Level 112mg/dL (70-99) 147mg/dL (70-99) Calcium Level 9.5mg/dL (8.5-10.1) 8.9mg/dL (8.5-10.1) Total Bilirubin 0.6mg/dL (0.2-1.0) Aspartate Amino Transf (AST/SGOT) 23U/L (15-37) Alanine Aminotransferase (ALT/SGPT) 25U/L (14-59) Alkaline Phosphatase 86U/L (46-116) Total Protein 8.1g/dL (6.4-8.2) Albumin 3.9g/dL (3.4-5.0) Albumin/Globulin Ratio 0.9 (1.0-1.7) Lipase 100U/L (73-393) Urine Collection Type Unknown Urine Color Margaret Urine Clarity Cloudy Urine pH 5.5 Urine Specific [place] >=1.030 Urine Protein 30mg/dL (NEG-TRACE) Urine Glucose (UA) Negativemg/dL (NEG) Urine Ketones (Stick) Tracemg/dL (NEG) Urine Blood Negative (NEG) Urine Nitrite Negative (NEG) Urine Bilirubin Small (NEG) Urine Urobilinogen Dipstick 0.2mg/dL (0.2 mg/dL) Urine Leukocyte Esterase Small (NEG) Urine RBC 0/HPF (0-2) Urine WBC 5-10/HPF (0-4) Urine Squamous Epithelial Cells Many/LPF Urine Calcium Phosphate Crystals /HPF Urine Bacteria Moderate/HPF (0-FEW) Urine Mucus Marked/LPF Bedside Urine HCG, Qualitative Hcg negative (Negative) Problem List Problems Medical Problems: (1) Acute appendicitis Status: Acute Assessment/Plan s/p lap appy not perforated, wbc normal--does not need abx at dc FU 2 weeks Problems: MICHELLE DUNN APRN Jan 10, 2017 09:35
[2017-01-10 11:00] VITALS: BP 137/72
--- NOTE | 2017-01-10 12:12 | PDOC ---
PROGRESS NOTES Chief Complaint Chief Complaint 1. Acute Appendicitis 2. Nausea 3. Hx of Depression History of Present Illness History of Present Illness The pt is doing well sitting up in chair talking with family upon arrival to her room this AM. The pt states that she is feeling better today after surgery yesterday. Still has some pain in her LLQ after surgery but improved since yesterday. Was able to tolerate breakfast this AM w/o any issue. Vitals Vitals Vital Signs Date Time Temp Pulse Resp B/P Pulse Ox O2 Delivery O2 Flow Rate FiO2 01/10/17 11:00 97.8 56 20 137/72 98 Room Air 97.8 01/10/17 01:35 2.0 Physical Exam General: Alert, Oriented X3, Cooperative, No acute distress Heart: Regular rate, No murmurs Abdomen: Soft, No tenderness, Other (lap sites dry) Extremities: No edema Skin: No significant lesion Labs LABS Laboratory Tests Test 01/09/17 17:00 01/09/17 17:05 01/09/17 17:17 01/10/17 03:20 White Blood Count 21.0x10^3/uL (4.0-11.0) 9.5x10^3/uL (4.0-11.0) Red Blood Count 4.65x10^6/uL (3.50-5.40) 4.33x10^6/uL (3.50-5.40) Hemoglobin 13.6g/dL (12.0-15.5) 12.6g/dL (12.0-15.5) Hematocrit 40.9% (36.0-47.0) 37.8% (36.0-47.0) Mean Corpuscular Volume 88fL (79-100) 87fL (79-100) Mean Corpuscular Hemoglobin 29pg (25-35) 29pg (25-35) Mean Corpuscular Hemoglobin Concent 33g/dL (31-37) 33g/dL (31-37) Red Cell Distribution Width 13.3% (11.5-14.5) 13.0% (11.5-14.5) Platelet Count 366x10^3/uL (140-400) 345x10^3/uL (140-400) Neutrophils (%) (Auto) 87% (31-73) 89% (31-73) Lymphocytes (%) (Auto) 9% (24-48) 9% (24-48) Monocytes (%) (Auto) 3% (0-9) 1% (0-9) Eosinophils (%) (Auto) 0% (0-3) 0% (0-3) Basophils (%) (Auto) 0% (0-3) 0% (0-3) Neutrophils # (Auto) 18.3x10^3uL (1.8-7.7) 8.5x10^3uL (1.8-7.7) Lymphocytes # (Auto) 1.9x10^3/uL (1.0-4.8) 0.9x10^3/uL (1.0-4.8) Monocytes # (Auto) 0.6x10^3/uL (0.0-1.1) 0.1x10^3/uL (0.0-1.1) Eosinophils # (Auto) 0.1x10^3/uL (0.0-0.7) 0.0x10^3/uL (0.0-0.7) Basophils # (Auto) 0.1x10^3/uL (0.0-0.2) 0.0x10^3/uL (0.0-0.2) Segmented Neutrophils % 89% (35-66) Lymphocytes % 7% (24-48) Monocytes % 3% (0-10) Eosinophils % 1% (0-5) Platelet Estimate Adequate (ADEQUATE) Anisocytosis Slight Sodium Level 143mmol/L (136-145) 140mmol/L (136-145) Potassium Level 3.8mmol/L (3.5-5.1) 3.9mmol/L (3.5-5.1) Chloride Level 106mmol/L (98-107) 105mmol/L (98-107) Carbon Dioxide Level 26mmol/L (21-32) 25mmol/L (21-32) Anion Gap 11 (6-14) 10 (6-14) Blood Urea Nitrogen 9mg/dL (7-20) 7mg/dL (7-20) Creatinine 0.9mg/dL (0.6-1.0) 0.8mg/dL (0.6-1.0) Estimated GFR (Cockcroft-Gault) 74.6 85.4 BUN/Creatinine Ratio 10 (6-20) Glucose Level 112mg/dL (70-99) 147mg/dL (70-99) Calcium Level 9.5mg/dL (8.5-10.1) 8.9mg/dL (8.5-10.1) Total Bilirubin 0.6mg/dL (0.2-1.0) Aspartate Amino Transf (AST/SGOT) 23U/L (15-37) Alanine Aminotransferase (ALT/SGPT) 25U/L (14-59) Alkaline Phosphatase 86U/L (46-116) Total Protein 8.1g/dL (6.4-8.2) Albumin 3.9g/dL (3.4-5.0) Albumin/Globulin Ratio 0.9 (1.0-1.7) Lipase 100U/L (73-393) Urine Collection Type Unknown Urine Color Margaret Urine Clarity Cloudy Urine pH 5.5 Urine Specific [place] >=1.030 Urine Protein 30mg/dL (NEG-TRACE) Urine Glucose (UA) Negativemg/dL (NEG) Urine Ketones (Stick) Tracemg/dL (NEG) Urine Blood Negative (NEG) Urine Nitrite Negative (NEG) Urine Bilirubin Small (NEG) Urine Urobilinogen Dipstick 0.2mg/dL (0.2 mg/dL) Urine Leukocyte Esterase Small (NEG) Urine RBC 0/HPF (0-2) Urine WBC 5-10/HPF (0-4) Urine Squamous Epithelial Cells Many/LPF Urine Calcium Phosphate Crystals /HPF Urine Bacteria Moderate/HPF (0-FEW) Urine Mucus Marked/LPF Bedside Urine HCG, Qualitative Hcg negative (Negative) Review of Systems Review of Systems Complaining of some LLQ pain- improved since appendectomy and with pain medications Complaining of Hunger Denies Nausea or Vomiting since procedure All other ROS Negative Assessment and Plan Assessmemt and Plan Problems Medical Problems: (1) Acute appendicitis Status: Acute 1. Acute Appendicitis s/p Appendectomy 01/09/17 2. Nausea 3. Hx of Depression Plan: - RX given for Augmentin on discharge - RX given for Lortab prn for pain on discharge - General Surgery Consulted- Appreciate help on case - pt s/p Appendectomy on 01/09/2017 - F/u in 2 weeks - Labs Reviewed: WBC: 9.5 today - Vitals Stable - Nausea resolved - Able to tolerate regular diet this AM - Disposition: Discharge home with prescriptions for abx and pain medications; F/u in 2 weeks with general surgery Problems: Comment Review of Relevant I have reviewed the following items fernanda (where applicable) has been applied. Labs Laboratory Tests Test 01/09/17 17:00 01/09/17 17:05 01/09/17 17:17 01/10/17 03:20 White Blood Count 21.0x10^3/uL (4.0-11.0) 9.5x10^3/uL (4.0-11.0) Red Blood Count 4.65x10^6/uL (3.50-5.40) 4.33x10^6/uL (3.50-5.40) Hemoglobin 13.6g/dL (12.0-15.5) 12.6g/dL (12.0-15.5) Hematocrit 40.9% (36.0-47.0) 37.8% (36.0-47.0) Mean Corpuscular Volume 88fL (79-100) 87fL (79-100) Mean Corpuscular Hemoglobin 29pg (25-35) 29pg (25-35) Mean Corpuscular Hemoglobin Concent 33g/dL (31-37) 33g/dL (31-37) Red Cell Distribution Width 13.3% (11.5-14.5) 13.0% (11.5-14.5) Platelet Count 366x10^3/uL (140-400) 345x10^3/uL (140-400) Neutrophils (%) (Auto) 87% (31-73) 89% (31-73) Lymphocytes (%) (Auto) 9% (24-48) 9% (24-48) Monocytes (%) (Auto) 3% (0-9) 1% (0-9) Eosinophils (%) (Auto) 0% (0-3) 0% (0-3) Basophils (%) (Auto) 0% (0-3) 0% (0-3) Neutrophils # (Auto) 18.3x10^3uL (1.8-7.7) 8.5x10^3uL (1.8-7.7) Lymphocytes # (Auto) 1.9x10^3/uL (1.0-4.8) 0.9x10^3/uL (1.0-4.8) Monocytes # (Auto) 0.6x10^3/uL (0.0-1.1) 0.1x10^3/uL (0.0-1.1) Eosinophils # (Auto) 0.1x10^3/uL (0.0-0.7) 0.0x10^3/uL (0.0-0.7) Basophils # (Auto) 0.1x10^3/uL (0.0-0.2) 0.0x10^3/uL (0.0-0.2) Segmented Neutrophils % 89% (35-66) Lymphocytes % 7% (24-48) Monocytes % 3% (0-10) Eosinophils % 1% (0-5) Platelet Estimate Adequate (ADEQUATE) Anisocytosis Slight Sodium Level 143mmol/L (136-145) 140mmol/L (136-145) Potassium Level 3.8mmol/L (3.5-5.1) 3.9mmol/L (3.5-5.1) Chloride Level 106mmol/L (98-107) 105mmol/L (98-107) Carbon Dioxide Level 26mmol/L (21-32) 25mmol/L (21-32) Anion Gap 11 (6-14) 10 (6-14) Blood Urea Nitrogen 9mg/dL (7-20) 7mg/dL (7-20) Creatinine 0.9mg/dL (0.6-1.0) 0.8mg/dL (0.6-1.0) Estimated GFR (Cockcroft-Gault) 74.6 85.4 BUN/Creatinine Ratio 10 (6-20) Glucose Level 112mg/dL (70-99) 147mg/dL (70-99) Calcium Level 9.5mg/dL (8.5-10.1) 8.9mg/dL (8.5-10.1) Total Bilirubin 0.6mg/dL (0.2-1.0) Aspartate Amino Transf (AST/SGOT) 23U/L (15-37) Alanine Aminotransferase (ALT/SGPT) 25U/L (14-59) Alkaline Phosphatase 86U/L (46-116) Total Protein 8.1g/dL (6.4-8.2) Albumin 3.9g/dL (3.4-5.0) Albumin/Globulin Ratio 0.9 (1.0-1.7) Lipase 100U/L (73-393) Urine Collection Type Unknown Urine Color Margaret Urine Clarity Cloudy Urine pH 5.5 Urine Specific [place] >=1.030 Urine Protein 30mg/dL (NEG-TRACE) Urine Glucose (UA) Negativemg/dL (NEG) Urine Ketones (Stick) Tracemg/dL (NEG) Urine Blood Negative (NEG) Urine Nitrite Negative (NEG) Urine Bilirubin Small (NEG) Urine Urobilinogen Dipstick 0.2mg/dL (0.2 mg/dL) Urine Leukocyte Esterase Small (NEG) Urine RBC 0/HPF (0-2) Urine WBC 5-10/HPF (0-4) Urine Squamous Epithelial Cells Many/LPF Urine Calcium Phosphate Crystals /HPF Urine Bacteria Moderate/HPF (0-FEW) Urine Mucus Marked/LPF Bedside Urine HCG, Qualitative Hcg negative (Negative) Laboratory Tests Test 01/09/17 17:00 01/09/17 17:05 01/09/17 17:17 01/10/17 03:20 White Blood Count 21.0x10^3/uL (4.0-11.0) 9.5x10^3/uL (4.0-11.0) Red Blood Count 4.65x10^6/uL (3.50-5.40) 4.33x10^6/uL (3.50-5.40) Hemoglobin 13.6g/dL (12.0-15.5) 12.6g/dL (12.0-15.5) Hematocrit 40.9% (36.0-47.0) 37.8% (36.0-47.0) Mean Corpuscular Volume 88fL (79-100) 87fL (79-100) Mean Corpuscular Hemoglobin 29pg (25-35) 29pg (25-35) Mean Corpuscular Hemoglobin Concent 33g/dL (31-37) 33g/dL (31-37) Red Cell Distribution Width 13.3% (11.5-14.5) 13.0% (11.5-14.5) Platelet Count 366x10^3/uL (140-400) 345x10^3/uL (140-400) Neutrophils (%) (Auto) 87% (31-73) 89% (31-73) Lymphocytes (%) (Auto) 9% (24-48) 9% (24-48) Monocytes (%) (Auto) 3% (0-9) 1% (0-9) Eosinophils (%) (Auto) 0% (0-3) 0% (0-3) Basophils (%) (Auto) 0% (0-3) 0% (0-3) Neutrophils # (Auto) 18.3x10^3uL (1.8-7.7) 8.5x10^3uL (1.8-7.7) Lymphocytes # (Auto) 1.9x10^3/uL (1.0-4.8) 0.9x10^3/uL (1.0-4.8) Monocytes # (Auto) 0.6x10^3/uL (0.0-1.1) 0.1x10^3/uL (0.0-1.1) Eosinophils # (Auto) 0.1x10^3/uL (0.0-0.7) 0.0x10^3/uL (0.0-0.7) Basophils # (Auto) 0.1x10^3/uL (0.0-0.2) 0.0x10^3/uL (0.0-0.2) Segmented Neutrophils % 89% (35-66) Lymphocytes % 7% (24-48) Monocytes % 3% (0-10) Eosinophils % 1% (0-5) Platelet Estimate Adequate (ADEQUATE) Anisocytosis Slight Sodium Level 143mmol/L (136-145) 140mmol/L (136-145) Potassium Level 3.8mmol/L (3.5-5.1) 3.9mmol/L (3.5-5.1) Chloride Level 106mmol/L (98-107) 105mmol/L (98-107) Carbon Dioxide Level 26mmol/L (21-32) 25mmol/L (21-32) Anion Gap 11 (6-14) 10 (6-14) Blood Urea Nitrogen 9mg/dL (7-20) 7mg/dL (7-20) Creatinine 0.9mg/dL (0.6-1.0) 0.8mg/dL (0.6-1.0) Estimated GFR (Cockcroft-Gault) 74.6 85.4 BUN/Creatinine Ratio 10 (6-20) Glucose Level 112mg/dL (70-99) 147mg/dL (70-99) Calcium Level 9.5mg/dL (8.5-10.1) 8.9mg/dL (8.5-10.1) Total Bilirubin 0.6mg/dL (0.2-1.0) Aspartate Amino Transf (AST/SGOT) 23U/L (15-37) Alanine Aminotransferase (ALT/SGPT) 25U/L (14-59) Alkaline Phosphatase 86U/L (46-116) Total Protein 8.1g/dL (6.4-8.2) Albumin 3.9g/dL (3.4-5.0) Albumin/Globulin Ratio 0.9 (1.0-1.7) Lipase 100U/L (73-393) Urine Collection Type Unknown Urine Color Margaret Urine Clarity Cloudy Urine pH 5.5 Urine Specific [place] >=1.030 Urine Protein 30mg/dL (NEG-TRACE) Urine Glucose (UA) Negativemg/dL (NEG) Urine Ketones (Stick) Tracemg/dL (NEG) Urine Blood Negative (NEG) Urine Nitrite Negative (NEG) Urine Bilirubin Small (NEG) Urine Urobilinogen Dipstick 0.2mg/dL (0.2 mg/dL) Urine Leukocyte Esterase Small (NEG) Urine RBC 0/HPF (0-2) Urine WBC 5-10/HPF (0-4) Urine Squamous Epithelial Cells Many/LPF Urine Calcium Phosphate Crystals /HPF Urine Bacteria Moderate/HPF (0-FEW) Urine Mucus Marked/LPF Bedside Urine HCG, Qualitative Hcg negative (Negative) Medications Current Medications Sodium Chloride (Iv Sodium Chloride 0.9% 1000ml Bag) 1,000 ml @ 1,000 mls/hr Q1H IV Last administered on 01/09/17t 17:14; Start 01/09/17 at 17:30; Stop at 18:29; Status DC Ondansetron HCl (Zofran) 4 mg 1X ONCE IV Last administered on 01/09/17 17:15 ; Start 01/09/17 at 17:30; Stop 01/09/17 at 17:31; Status DC Morphine Sulfate 4 mg 1X ONCE IV Last administered on 01/09/17 17:16; Start 01/09/17 at 17:30; Stop 01/09/17 at 17:31; Status DC Iohexol 75 ml 75 ml 1X ONCE IV Last administered on 01/09/17 17:32; Start at 17:30; Stop 01/09/17 at 17:31; Status DC Ertapenem (Invanz 1gm Ivpb For Omni) 50 ml @ 100 mls/hr 1X ONCE IV Last administered on 01/09/17 18:21; Start 01/09/17 at 18:15; Stop 01/09/17 at 18:44 ; Status DC Ondansetron HCl (Zofran) 4 mg PRN Q8HRS PRN IV NAUSEA/VOMITING Last administered on 01/09/17 19:31; Start 01/09/17 at 18:30; Stop 01/09/17 at 21:21 ; Status DC Morphine Sulfate 4 mg 4 mg PRN Q2HR PRN IV PAIN; Start 01/09/17 at 18:30; Stop 01/09/17 at 21:23; Status DC Sodium Chloride (Iv Sodium Chloride 0.9% 1000ml Bag) 1,000 ml @ 125 mls/hr Q8H IV Last administered on 01/09/17 19:31; Start 01/09/17 at 19:00; Stop at 02:59; Status DC Acetaminophen (Tylenol) 650 mg PRN Q4HRS PRN PO FEVER; Start 01/09/17 at 18:30 ; Stop 01/10/17 at 18:29 Desflurane (Suprane) 60 ml STK-MED ONCE IH ; Start 01/09/17 at 19:16; Stop 01/09 at 19:17; Status DC Midazolam HCl (Versed) 2 mg STK-MED ONCE .ROUTE ; Start 01/09/17 at 19:19; Stop 01/09/17 at 19:20; Status DC Fentanyl Citrate (Fentanyl 2ml Vial) 100 mcg STK-MED ONCE .ROUTE ; Start at 19:19; Stop 01/09/17 at 19:20; Status DC Succinylcholine Chloride (Anectine) 200 mg STK-MED ONCE .ROUTE ; Start 01/09/17 at 19:20; Stop 01/09/17 at 19:21; Status DC Glycopyrrolate (Robinul) 1 mg STK-MED ONCE .ROUTE ; Start 01/09/17 at 19:20; Stop 01/09/17 at 19:21; Status DC Neostigmine Methylsulfate 5 mg STK-MED ONCE .ROUTE ; Start 01/09/17 at 19:20; Stop 01/09/17 at 19:21; Status DC Rocuronium Sulphur 50 mg 50 mg STK-MED ONCE .ROUTE ; Start 01/09/17 at 19:20; Stop 01/09/17 at 19:21; Status DC Propofol (Diprivan) 20 ml @ As Directed STK-MED ONCE IV ; Start 01/09/17 at 19: 20; Stop 01/09/17 at 19:21; Status DC Dexamethasone Sodium Phosphate (Decadron) 20 mg STK-MED ONCE .ROUTE ; Start at 19:20; Stop 01/09/17 at 19:21; Status DC Ondansetron HCl (Zofran) 4 mg STK-MED ONCE .ROUTE ; Start 01/09/17 at 19:20; Stop 01/09/17 at 19:21; Status DC Ketorolac Tromethamine (Toradol For Or Only) 30 mg STK-MED ONCE INJ ; Start at 19:20; Stop 01/09/17 at 19:21; Status DC Lidocaine HCl 100 mg STK-MED ONCE .ROUTE ; Start 01/09/17 at 19:20; Stop at 19:21; Status DC Bupivacaine HCl/ Epinephrine Bitart (Marcaine-Epi 0.25%-1:[id number]) 50 ml STK-MED ONCE .ROUTE Last administered on 01/09/17t 20:38; Start 01/09/17 at 19:37; Stop 01/09/17 at 19:38; Status DC Famotidine (Pepcid) 20 mg STK-MED ONCE .ROUTE ; Start 01/09/17 at 20:29; Stop at 20:30; Status DC Ondansetron HCl (Zofran) 4 mg PRN Q6HRS PRN IV Nausea; Start 01/09/17 at 21:15 ; Stop 01/09/17 at 23:59; Status DC Fentanyl Citrate (Fentanyl 2ml Vial) 25 mcg PRN Q5MIN PRN IV MILD PAIN; Start 01/09/17 at 21:15; Stop 01/09/17 at 23:59; Status DC Fentanyl Citrate (Fentanyl 2ml Vial) 50 mcg PRN Q5MIN PRN IV MODERATE PAIN Last administered on 01/09/17t 21:32; Start 01/09/17 at 21:15; Stop 01/09/17 at 23:59; Status DC Morphine Sulfate 1 mg 1 mg PRN Q10MIN PRN IV SEVERE PAIN; Start 01/09/17 at 21: 15; Stop 01/09/17 at 23:59; Status DC Lactated Ringer's (Iv Lactated Ringers) 1,000 ml @ 30 mls/hr Q24H IV ; Start at 21:01; Stop 01/10/17 at 03:00; Status DC Lidocaine HCl 2 ml 1X PRN PRN ID IV START; Start 01/09/17 at 21:15; Stop at 23:59; Status DC Hydromorphone HCl (Dilaudid) 0.5 mg PRN Q10MIN PRN IV SEV PAIN,Second choice; Start 01/09/17 at 21:15; Stop 01/09/17 at 23:59; Status DC Prochlorperazine Edisylate (Compazine) 5 mg PACU PRN PRN IV NAUSEA Last administered on 01/09/17t 21:43; Start 01/09/17 at 21:15; Stop 01/09/17 at 23:59 ; Status DC Sodium Chloride (Normal Saline Flush) 3 ml QSHIFT PRN IV AFTER MEDS AND BLOOD DRAWS; Start 01/09/17 at 21:15 Morphine Sulfate 2 mg PRN Q3HRS PRN IV PAIN; Start 01/09/17 at 21:15 Oxycodone/ Acetaminophen (Percocet 5/325) 1 tab PRN Q4HRS PRN PO MILD PAIN, 1ST CHOICE; Start 01/09/17 at 21:15 Oxycodone/ Acetaminophen (Percocet 5/325) 2 tab PRN Q4HRS PRN PO MODERATE PAIN , SEVERE PAIN; Start 01/09/17 at 21:15 Ketorolac Tromethamine (Toradol) 15 mg Q6HRS IV Last administered on 01/10/17t 05:40; Start 01/10/17 at 00:00; Stop 01/11/17 at 23:59 Ondansetron HCl 4 mg 4 mg PRN Q6HRS PRN IV NAUSEA, 1ST CHOICE; Start 01/09/17 at 21:15 Dextrose/Lactated Ringer's 1,000 ml @ 75 mls/hr [id number] IV ; Start 01/10/17 at 04:00 Ertapenem/Sodium Chloride (Invanz/Iv Sodium Chloride 0.9% 50ml) 50 ml @ 100 mls /hr Q24H IV ; Start 01/10/17 at 18:00 Acetaminophen (Ofirmev) 1,000 mg STK-MED ONCE IV ; Start 01/09/17 at 21:00; Stop 01/10/17 at 08:16; Status DC Active Scripts Active Reported June Fe 1 Mg-20 Mcg Tablet (Noreth A-Et Estra/Fe Fumarate) 1 Each Tablet 1 Tab PO DAILY Valacyclovir (Valacyclovir Hcl) 500 Mg Tablet 1 Tab PO DAILY Prozac (Fluoxetine Hcl) 10 Mg Capsule 1 Cap PO [id number] Vitals/I & O Vital Sign - Last 24 Hours 01/09/17 01/09/17 01/09/17 01/09/17 16:55 17:16 17:22 17:46 Temp 98.5 98.5 Pulse 116 72 71 Resp 16 18 17 B/P 143/73 108/54 114/57 Pulse Ox 97 96 99 O2 Delivery Room Air Room Air Room Air Room Air 01/09/17 01/09/17 01/09/17 01/09/17 17:50 17:52 18:22 18:52 Pulse 91 68 90 Resp 15 17 22 B/P 118/58 122/68 125/64 Pulse Ox 98 97 96 O2 Delivery Room Air Room Air Room Air Room Air 01/09/17 01/09/17 01/09/17 01/09/17 19:22 19:30 21:14 21:25 Temp 97.4 97.4 Pulse 152 113 111 Resp 21 16 B/P 170/105 173/79 121/58 Pulse Ox 95 99 O2 Delivery Room Air Simple Mask Room Air O2 Flow Rate 10 01/09/17 01/09/17 01/09/17 01/09/17 21:29 21:32 21:44 21:59 Temp 97.8 97.2 97.8 97.2 Pulse 65 84 76 Resp 16 14 17 16 B/P 124/67 124/67 122/63 Pulse Ox 93 98 96 97 O2 Delivery Nasal Cannula Room Air Nasal Cannula Nasal Cannula O2 Flow Rate 2 2 2 01/09/17 01/09/17 01/10/17 01/10/17 22:05 23:00 01:12 01:35 Temp 97.7 97.7 97.7 97.7 Pulse 73 71 Resp 18 18 B/P 119/62 122/75 Pulse Ox 98 98 O2 Delivery Nasal Cannula Room Air Room Air Room Air O2 Flow Rate 2.0 2.0 01/10/17 01/10/17 01/10/17 01/10/17 03:00 07:00 07:55 11:00 Temp 98.0 97.8 97.8 98.0 97.8 97.8 Pulse 94 76 56 Resp 20 20 20 B/P 144/89 136/81 137/72 Pulse Ox 97 96 98 O2 Delivery Room Air Room Air Room Air Room Air Intake and Output 01/09/17 01/09/17 01/10/17 15:00 23:00 07:00 Intake Total 2350 ml 240 ml Balance 2350 ml 240 ml TAMMY RODRÍGUEZ III DO Jan 10, 2017 12:12
[2017-01-10] MEDS ORDERED: ERTAPENEM 1 GM in IV NORMAL SALINE 50ML 50 ML IV SCH (18:00)
== END 2017-01-10 12:30 | disposition home or self-care (01) | DRG 342 ==
LOC: ER 16:48 → 4 NORTH 18:23
PROVIDERS: ADMIT Internal Medicine; ATTEND Internal Medicine
PROC: 0DTJ4ZZ Resection of Appendix, Percutaneous Endoscopic Approach (ICD-10-PCS; principal; 2017-01-09 20:00)
DX: K35.80 Unspecified acute appendicitis (principal); N39.0 Urinary tract infection, site not specified; Z68.41 Body mass index [BMI] 40.0-44.9, adult; K66.8 Other specified disorders of peritoneum; Z82.49 Family history of ischemic heart disease and other diseases of the circulatory system; F32.9 Major depressive disorder, single episode, unspecified; Z90.49 Acquired absence of other specified parts of digestive tract; Z79.899 Other long term (current) drug therapy
CPT/HCPCS: 36415; 74177; 80048; 80053; 81001; 81025; 83690; 85007; 85027; 87086; 96365; 96375; C1782; J0131; J0330; J0780; J1100; J1335; J1885; J2250; J2270; J2405; J2704; J2710; J3010; J3490; J7030; J7120; Q9967; S0028; 99285-25

== ENCOUNTER → 2019-01-12 | Outpatient (CLI) | payer OTHER ==
[~2019-01-12] MED LIST: FLUO10CA13 PO; NORE1TAB27 PO; VALA500T PO
--- NOTE | 2019-01-12 11:07 | KCIC ---
PELVIS W/TV History: Acute pelvic pain on Friday Comparison: None. Findings: Multiple transabdominal sonographic images of pelvis are submitted. Pelvic structures are poorly visualized. Transvaginal ultrasound: Multiple transvaginal sonographic images of pelvis are submitted. Uterus measured 8.5 x 3.3 x 4.7 cm. Endometrium is estimated about 0.6 cm in thickness, somewhat poorly visualized. Right ovary measured 4.5 x 4.2 x 3.4 cm. Left ovary measured 2.1 x 1.3 x 2.1 cm. There is mild somewhat complex appearing free fluid in the region of the cul-de-sac and also extending near the right adnexal region. There is a focus of different echogenicity of the right adnexa measuring 2.8 x 2.4 x 3.6 cm. There is normal low resistance vascularity of the ovaries bilaterally. Impression: 1. There is a focus of different, complex echogenicity of the right adnexal region up to 3.6 cm in greatest dimension which may be a complex/hemorrhagic cyst. There is mild complex free fluid or hemorrhage in the right adnexal and posterior cul-de-sac, constellation of findings which could be due to sequela of partially ruptured hemorrhagic cyst. Short-term follow-up imaging in 2 months is advised. Electronically signed by: Kirby Domínguez MD (01/12/2019 11:03 AM) [id number]
== END | disposition home or self-care (01) ==
LOC: KCIC US 09:45
PROVIDERS: ATTEND Family Medicine
DX: R10.2 Pelvic and perineal pain (principal)
CPT/HCPCS: 76830; 76856

== ENCOUNTER → 2019-04-01 | Outpatient (CLI) | payer OTHER ==
--- NOTE | 2019-04-01 09:48 | KCIC ---
Pelvic ultrasound dated 04/01/2019. Comparison made to 04/01/2019. CLINICAL INDICATION: Follow-up adnexal cyst. FINDINGS: Transabdominal and transvaginal imaging was performed. Uterus measures 7.0 x 4.8 x 3.1 cm. No focal uterine mass. Endometrial complex is normal in thickness for age measuring 11 mm. Heterogeneous appearance of the cervix, nonspecific. Right ovary measures 3.0 x 2.2 x 3.4 cm. There is a complex cyst at the right ovary measuring up to 2 cm in size, somewhat decreased from prior exam where it measured 3.6 cm previously. Left ovary measures 2.3 x 1.7 x 2.2 cm. No left adnexal mass or free fluid. Normal color Doppler flow to both ovaries. IMPRESSION: 1. Interval decrease in size of complex cyst right ovary. 2. Heterogeneous appearance of the cervix, nonspecific. Correlate with physical exam findings. 3. Otherwise no significant abnormality. Electronically signed by: Latrell Hatfield MD (04/01/2019 9:45 AM) [email or web address]
== END | disposition home or self-care (01) ==
LOC: KCIC US 08:10
PROVIDERS: ATTEND Obstetrics & Gynecology
DX: N83.201 Unspecified ovarian cyst, right side (principal)
CPT/HCPCS: 76830; 76856